=== PATIENT | female | born 1995 | race Caucasian/White ===

== ENCOUNTER 2022-10-02 07:22 | Emergency (ER) | payer OTHER ==
[~2022-10-02] VITALS: Ht 154.9 cm; Wt 59.0 kg
[2022-10-02] MEDS ORDERED: DICLOFENAC SODI75 MG PO (09:49)
== END 2022-10-02 10:02 | disposition home or self-care (01) ==
LOC: ER 07:22
DX: M77.9 Enthesopathy, unspecified (principal)